=== PATIENT | female | born 1960 | race American Indian/Alaskan Native ===

== ENCOUNTER 2016-06-03 09:44 | Outpatient (CLI) | payer OTHER ==
--- NOTE | 2016-06-03 13:02 | Mammography Report ---
BILATERAL MAMMOGRAM: FINDINGS: There are scattered fibroglandular densities (approximately 25%-50% glandular). No mass, distortion, suspicious calcification, or skin change is seen. There is no significant change compared to her prior study in May 2015. CAD was utilized. IMPRESSION: Negative mammogram. There is no mammographic evidence of malignancy. RECOMMENDATION: Follow-up per ACS guidelines. BI-RADS CATEGORY: 1 = Negative ACR BI-RADS MAMMOGRAPHIC CODES: 0 = Needs additional imaging evaluation; 1 = Negative; 2 = Benign; 3 = Probably benign; 4 = Suspicious; 5 = Malignant; 6 = Known biopsy-proven malignancy COMMENT: 1. Dense breast tissue, i.e., adenosis, fibrocystic changes, etc., may obscure an underlying neoplasm. 2. Approximately 10% of cancers are not detected with mammography. 3. A negative mammography report should not delay biopsy if a clinically suspicious mass is present. COMMENT: Patient follow-up letters are generated in [employer].
== END 2016-06-03 09:45 | disposition home or self-care (01) ==
LOC: MAMMO 09:44
PROVIDERS: ATTEND Obstetrics & Gynecology Gynecology
DX: Z12.31 Encounter for screening mammogram for malignant neoplasm of breast (principal)
CPT/HCPCS: 77067; G0202

== ENCOUNTER 2016-06-21 09:47 | Outpatient (CLI) | payer OTHER ==
--- NOTE | 2016-06-21 10:47 | Mammography Report ---
BONE DENSITY STUDY: Postmenopausal. DEFINITIONS: BMD = Bone Mineral Density T-score = BMD related to mean peak bone mass of young adult (mean expressed in Standard Deviation) Z-score = Age matched BMD expressed in SD World Health Organization (WHO) Diagnostic Criteria Normal T-score > -1 SD Osteopenia T-score between -1 and -2.4 SD Osteoporosis T-score -2.5 SD or below FINDINGS: The weighted average BMD of lumbar spine L1-L4 is 1.111 with a T-score of 0.3. The weighted average BMD of the left hip is 0.883 with a T-score of -0.5. The femoral neck BMD is 0.727 with a T. value score of -1.1. IMPRESSION: The patient's average T-score is diagnostic for normal bone density and low relative risk for fracture. NOTE: BMD is not the only risk factor for fracture; also consider factors such as the patient's age, risk of falling, previous osteoporotic fracture, family history of osteoporotic fractures, current smoker, and low body weight. Finch's triangle is a region of interest in femur, predominantly of trabecular bone. It is not a true anatomic site, and [facility] does not recommend its use clinically.
== END 2016-06-21 09:48 | disposition home or self-care (01) ==
LOC: MAMMO 09:47
PROVIDERS: ATTEND Obstetrics & Gynecology Gynecology
DX: M46.80 Other specified inflammatory spondylopathies, site unspecified (principal); N95.1 Menopausal and female climacteric states
CPT/HCPCS: 77080

== ENCOUNTER 2017-06-04 09:00 | Outpatient (CLI) | payer OTHER ==
--- NOTE | 2017-06-04 09:48 | Mammography Report ---
BILATERAL MAMMOGRAM: FINDINGS: There are scattered fibroglandular densities (approximately 25%-50% glandular). No mass, distortion, suspicious calcification, or skin change is seen. There are no significant changes when compared to exams dating back to May 2015. CAD was utilized. IMPRESSION: Negative mammogram. There is no mammographic evidence of malignancy. RECOMMENDATION: Follow-up per ACS guidelines. BI-RADS CATEGORY: 1 = Negative ACR BI-RADS MAMMOGRAPHIC CODES: 0 = Needs additional imaging evaluation; 1 = Negative; 2 = Benign; 3 = Probably benign; 4 = Suspicious; 5 = Malignant; 6 = Known biopsy-proven malignancy COMMENT: 1. Dense breast tissue, i.e., adenosis, fibrocystic changes, etc., may obscure an underlying neoplasm. 2. Approximately 10% of cancers are not detected with mammography. 3. A negative mammography report should not delay biopsy if a clinically suspicious mass is present. COMMENT: Patient follow-up letters are generated in [employer].
== END 2017-06-04 09:01 | disposition home or self-care (01) ==
LOC: MAMMO 09:00
PROVIDERS: ATTEND Obstetrics & Gynecology Gynecology
DX: Z12.31 Encounter for screening mammogram for malignant neoplasm of breast (principal)
CPT/HCPCS: 77067

== ENCOUNTER 2017-12-15 09:04 | Outpatient (CLI) | payer OTHER ==
--- NOTE | 2017-12-16 14:44 | Vascular Lab Report ---
LOWER EXTREMITY VENOUS DUPLEX: REASON FOR EXAM: Chronic venous insufficiency. COMMENTS ON THE RIGHT: No deep venous thrombosis was identified during the study. The greater and lesser saphenous veins are patent without evidence of thrombosis. No significant reflux was identified in either vessel. COMMENTS ON THE LEFT: No deep venous thrombosis is noted. The greater and lesser saphenous veins are patent without evidence of internal echogenicity. Maximum reflux is 0.32 seconds at the left saphenofemoral junction. The saphenous vein is particularly small throughout the left lower extremity. The lesser saphenous vein is small (less than 3 mm) throughout its course. There is a reflux time of 1.46 seconds at the proximal lesser saphenous vein. IMPRESSION: No evidence of significant venous reflux at the right greater saphenous and lesser saphenous veins. Mild reflux at the proximal left greater saphenous vein. The left greater saphenous vein is small throughout its course. Moderate reflux to the proximal left lesser saphenous vein. This vein is also small throughout its course.
== END 2017-12-15 09:05 | disposition home or self-care (01) ==
LOC: VAS 09:04
PROVIDERS: ATTEND Surgery Vascular Surgery
DX: I87.323 Chronic venous hypertension (idiopathic) with inflammation of bilateral lower extremity (principal)
CPT/HCPCS: 93970

== ENCOUNTER 2018-06-01 10:28 | Outpatient (CLI) | payer OTHER ==
--- NOTE | 2018-06-01 15:46 | XRay Report ---
PROCEDURE: XR SPINE LUMBOSACRAL 2-3V TECHNIQUE: 3 views of the lumbar spine HISTORY: LOW BACK PAIN COMPARISONS: None. FINDINGS: There is normal alignment without acute fracture or dislocation. The vertebral body heights are maint ained. There is mild diffuse intervertebral disc space narrowing, most prominent at T11-T12 and L5-S1 . There is moderate facet arthropathy in the lower lumbar spine. The paravertebral soft tissues are nor mal. IMPRESSION: Mild degenerative changes of the lumbar spine without acute fracture or dislocation. This document is electronically signed by Lu Talbot MD., June 01 2018 03:44:30 PM ET
== END 2018-06-01 10:29 | disposition home or self-care (01) ==
LOC: XRAY 10:28
PROVIDERS: ATTEND Internal Medicine
DX: M47.816 Spondylosis without myelopathy or radiculopathy, lumbar region (principal)
CPT/HCPCS: 72100

== ENCOUNTER 2018-06-05 08:50 | Outpatient (CLI) | payer OTHER ==
--- NOTE | 2018-06-05 12:59 | Mammography Report ---
BILATERAL DIGITAL SCREENING MAMMOGRAM : 06/05/18 08:50:00 CLINICAL: Routine screening. COMPARISON:06/04/17 FINDINGS: The breasts are almost entirely fatty. No mass, architectural distortion or suspicious calcifications. IMPRESSION: No mammographic evidence of malignancy. BI-RADS CATEGORY: 1 - - Negative RECOMMENDATION: Routine mammographic screening in one year. COMMENT: Patient follow-up letters are generated by our [employer] application.
== END 2018-06-05 08:51 | disposition home or self-care (01) ==
LOC: MAMMO 08:50
PROVIDERS: ATTEND Obstetrics & Gynecology
DX: Z12.31 Encounter for screening mammogram for malignant neoplasm of breast (principal)
CPT/HCPCS: 77067